=== PATIENT | male | born 1965 | race Two or more races ===

== ENCOUNTER 2022-03-14 06:33 | Day surgery (SDC) | payer OTHER ==
[~2022-03-14] VITALS: Ht 165.1 cm; Wt 68.9 kg
[~2022-03-14 06:33] MED LIST: LANTUS SOL100 UNIT/1; METFORMIN HCL500 M3 PO; SEROQUEL50 MG PO; VISTARIL25 MG PO; ZOLOFT50 MG PO
== END 2022-03-14 17:25 | disposition home or self-care (01) ==
LOC: CIR.AMB 06:33
PROVIDERS: ATTEND Orthopaedic Surgery Hand Surgery
DX: M18.11 Unilateral primary osteoarthritis of first carpometacarpal joint, right hand (principal); E11.9 Type 2 diabetes mellitus without complications; M19.90 Unspecified osteoarthritis, unspecified site; F32.A Depression, unspecified; Z79.4 Long term (current) use of insulin; Z20.822 Contact with and (suspected) exposure to COVID-19

== ENCOUNTER 2022-07-04 05:38 | Day surgery (SDC) | payer OTHER ==
[~2022-07-04] VITALS: Ht 165.1 cm; Wt 69.9 kg
== END 2022-07-04 13:10 | disposition home or self-care (01) ==
LOC: CIR.AMB 05:38
PROVIDERS: ATTEND Orthopaedic Surgery Hand Surgery
DX: M18.12 Unilateral primary osteoarthritis of first carpometacarpal joint, left hand (principal); Z20.822 Contact with and (suspected) exposure to COVID-19; E11.9 Type 2 diabetes mellitus without complications; Z79.4 Long term (current) use of insulin